=== PATIENT | female | born 1970 | race Hispanic/Latino ===

== ENCOUNTER 2017-10-25 11:46 | Emergency (ER) | payer BC ==
[2017-10-25 12:37] LABS: BASOPHILS % (AUTO) 0.9 % (0.0-5.0); EOSINOPHILS % (AUTO) 0.2 % (0.0-8.0); HEMATOCRIT 38.9 % (36-48); LYMPHOCYTES % (AUTO) 18.1 % (21.0-51.0); MEAN CORPUSCULAR HEMOGLOBIN 28.6 pg (27.0-33.0); MEAN CORPUSCULAR HGB CONC 33.6 g/dL (32.0-36.0); MEAN CORPUSCULAR VOLUME 85.2 fL (79-99); MONOCYTES % (AUTO) 5.3 % (3.0-13.0); NEUTROPHILS % (AUTO) 75.5 % (40.0-77.0); PLATELET COUNT (AUTO) 190 K/uL (130-400); RED BLOOD CELL COUNT(AUTO) 4.56 MIL/uL (4.00-5.50); RED CELL DISTRIBUTION WIDTH 13.4 % (11.0-15.5); WHITE BLOOD COUNT (AUTO) 6.5 K/uL (4.8-10.8)
[2017-10-25 12:47] LABS: CARBON DIOXIDE 25 mmol/L (21-32); CHLORIDE 102 mmol/L (101-111); CREATININE 0.7 mg/dL (0.5-1.5); GLOMERULAR FILTR. RATE CALC 96 mL/min (>60); GLUCOSE,RANDOM 208 mg/dL (70-105); POTASSIUM 3.8 mmol/L (3.5-5.1); SODIUM SERUM 136 mmol/L (136-145); UREA NITROGEN, BLOOD 21 mg/dL (7-18)
[2017-10-25 13:01] LABS: ALANINE AMINOTRANSFERASE 31 U/L (12-78); ALBUMIN 3.7 g/dL (3.5-5.0); ASPARTATE AMINOTRANSFERASE 16 U/L (10-37); BILIRUBIN,TOTAL 0.3 mg/dL (0.2-1.0); CREATINE KINASE MB < 0.5 ng/mL (0.5-3.6); CREATINE KINASE, TOTAL 67 U/L (21-232); TOTAL PROTEIN, SERUM 7.3 g/dL (6.0-8.3)
[2017-10-25] MEDS ORDERED: KETOROLAC TROMETHAMINE 30MG/ML ONE (13:50)
[2017-10-25 14:30] LABS: APPEARANCE,URINE Clear (CLEAR); BILIRUBIN,URINE Negative (NEGATIVE); COLOR,URINE Yellow (YELLOW); GLUCOSE, URINE (UA) 500 mg/dL (NEGATIVE); KETONES,URINE Negative (NEGATIVE); LEUKOCYTE ESTERASE ,URINE Moderate (NEGATIVE); NITRATE,URINE Negative (NEGATIVE); OCCULT BLOOD,URINE Negative (NEGATIVE); PROTEIN,URINE Negative (NEGATIVE); UROBILINOGEN,URINE 0.2 mg/dL (0.2-1.0)
[2017-10-25 14:43] LABS: BACTERIA,URINE Moderate /HPF (None Seen); MUCUS,URINE Moderate LPF (None Seen); RBC,URINE None Seen /HPF (0-1)
== END 2017-10-25 14:38 | disposition home or self-care (01) ==
LOC: EDH 11:46
DX: S13.4XXA Sprain of ligaments of cervical spine, initial encounter (principal); S30.0XXA Contusion of lower back and pelvis, initial encounter; S70.11XA Contusion of right thigh, initial encounter; R07.9 Chest pain, unspecified; E11.9 Type 2 diabetes mellitus without complications; I10 Essential (primary) hypertension; E78.5 Hyperlipidemia, unspecified; W18.39XA Other fall on same level, initial encounter; Y93.89 Activity, other specified; Y92.89 Other specified places as the place of occurrence of the external cause; Y99.8 Other external cause status
CPT/HCPCS: 36415; 70450; 71045; 72125; 72128; 72131; 73552; 80053; 81001; 82550; 82553; 84484; 84703; 85025; 93005; 96374; 99285; J1885

== ENCOUNTER 2017-12-05 22:27 | Emergency (ER) | payer BC ==
[2017-12-05] MEDS ORDERED: ASPIRIN 325 MG TABLET ONE (22:38)
[2017-12-05] MEDS ORDERED: KETOROLAC TROMETHAMINE 30MG/ML ONE (22:38)
[2017-12-05] MEDS ORDERED: NITROGLYCERIN 1GM/1 INCH PACKET TD ONE (22:38)
[2017-12-05 22:42] LABS: EOSINOPHILS % (AUTO) 1.2 % (0.0-8.0); HEMATOCRIT 39.6 % (36-48); LYMPHOCYTES % (AUTO) 25.4 % (21.0-51.0); MEAN CORPUSCULAR HGB CONC 34.2 g/dL (32.0-36.0); MEAN CORPUSCULAR VOLUME 84.9 fL (79-99); MONOCYTES % (AUTO) 6.2 % (3.0-13.0); NEUTROPHILS % (AUTO) 66.2 % (40.0-77.0); PLATELET COUNT (AUTO) 190 K/uL (130-400); RED BLOOD CELL COUNT(AUTO) 4.66 MIL/uL (4.00-5.50); RED CELL DISTRIBUTION WIDTH 14.3 % (11.0-15.5); WHITE BLOOD COUNT (AUTO) 7.5 K/uL (4.8-10.8)
[2017-12-05 23:02] LABS: CARBON DIOXIDE 28 mmol/L (21-32); CHLORIDE 102 mmol/L (101-111); CREATININE 0.8 mg/dL (0.5-1.5); GLOMERULAR FILTR. RATE CALC 82 mL/min (>60); GLUCOSE,RANDOM 141 mg/dL (70-105); POTASSIUM 3.5 mmol/L (3.5-5.1); SODIUM SERUM 137 mmol/L (136-145); UREA NITROGEN, BLOOD 14 mg/dL (7-18)
[2017-12-05 23:03] LABS: INR 1.02 (0.85-1.15); PARTIAL THROMBOPLASTIN TIME 23.8 SEC (26.3-35.5); PROTHROMBIN TIME 10.7 SEC (9.6-11.6)
[2017-12-05 23:18] LABS: CREATINE KINASE MB < 0.5 ng/mL (0.5-3.6); CREATINE KINASE, TOTAL 37 U/L (21-232)
== END 2017-12-06 01:59 | disposition home or self-care (01) ==
LOC: EDH 22:27
DX: M94.0 Chondrocostal junction syndrome [Tietze] (principal); R07.9 Chest pain, unspecified; E11.9 Type 2 diabetes mellitus without complications; E78.5 Hyperlipidemia, unspecified; I10 Essential (primary) hypertension; Z98.51 Tubal ligation status; Z90.49 Acquired absence of other specified parts of digestive tract
CPT/HCPCS: 36415; 71045; 80048; 82550; 82553; 84484 ×2; 84703; 85025; 85378; 85610; 85730; 93005; 96374; 99285; J1885

== ENCOUNTER 2018-02-28 18:42 | Emergency (ER) | payer BC ==
[2018-02-28 19:27] LABS: BASOPHILS % (AUTO) 0.8 % (0.0-5.0); EOSINOPHILS % (AUTO) 0.7 % (0.0-8.0); HEMATOCRIT 41.7 % (36-48); LYMPHOCYTES % (AUTO) 18.6 % (21.0-51.0); MEAN CORPUSCULAR HEMOGLOBIN 29.1 pg (27.0-33.0); MEAN CORPUSCULAR HGB CONC 33.9 g/dL (32.0-36.0); MEAN CORPUSCULAR VOLUME 85.8 fL (79-99); MONOCYTES % (AUTO) 6.4 % (3.0-13.0); NEUTROPHILS % (AUTO) 73.5 % (40.0-77.0); PLATELET COUNT (AUTO) 223 K/uL (130-400); RED BLOOD CELL COUNT(AUTO) 4.86 MIL/uL (4.00-5.50); RED CELL DISTRIBUTION WIDTH 13.2 % (11.0-15.5); WHITE BLOOD COUNT (AUTO) 8.2 K/uL (4.8-10.8)
[2018-02-28 19:29] LABS: APPEARANCE,URINE Clear (CLEAR); BILIRUBIN,URINE Negative (NEGATIVE); COLOR,URINE Yellow (YELLOW); GLUCOSE, URINE (UA) >=1000 mg/dL (NEGATIVE); KETONES,URINE Trace mg/dL (NEGATIVE); LEUKOCYTE ESTERASE ,URINE Small (NEGATIVE); NITRATE,URINE Negative (NEGATIVE); OCCULT BLOOD,URINE Negative (NEGATIVE); PH,URINE 6.5 (5.0-8.0); PROTEIN,URINE Trace (NEGATIVE)
[2018-02-28] MEDS ORDERED: HYDROXYZINE HCL 25 MG TABLET ONE (19:34)
[2018-02-28] MEDS ORDERED: ASPIRIN 325 MG TABLET ONE (19:34)
[2018-02-28 19:39] LABS: INR 1.05 (0.85-1.15); PARTIAL THROMBOPLASTIN TIME 25.6 SEC (26.3-35.5)
[2018-02-28 19:43] LABS: CREATININE 0.9 mg/dL (0.5-1.5); POTASSIUM 3.8 mmol/L (3.5-5.1)
[2018-02-28 19:46] LABS: RBC,URINE 0-1 /HPF (0-1)
[2018-02-28 19:47] LABS: BACTERIA,URINE Few /HPF (None Seen); SQUAMOUS EPITHELIAL CELL,UR Few /HPF (0-2)
[2018-02-28 19:56] LABS: ALBUMIN 3.9 g/dL (3.5-5.0); BILIRUBIN,TOTAL 0.2 mg/dL (0.2-1.0); CREATINE KINASE MB 0.6 ng/mL (0.5-3.6); TOTAL PROTEIN, SERUM 7.6 g/dL (6.0-8.3)
== END 2018-02-28 21:52 | disposition home or self-care (01) ==
LOC: EDH 18:42
DX: F41.1 Generalized anxiety disorder (principal); R07.89 Other chest pain; E11.9 Type 2 diabetes mellitus without complications; E78.5 Hyperlipidemia, unspecified; I10 Essential (primary) hypertension; Z98.51 Tubal ligation status
CPT/HCPCS: 36415; 71045; 80053; 81001; 82550; 82553; 82948; 84484; 85025; 85610; 85730; 93005

== ENCOUNTER 2018-08-25 22:53 | Inpatient (IN) | payer BC ==
[~2018-08-25] VITALS: Ht 160 cm; Wt 84.1 kg
[2018-08-25] MEDS ORDERED: ONDANSETRON HCL 4 MG/2 ML VIAL ONE (23:14)
[2018-08-25] MEDS ORDERED: ASPIRIN 325 MG TABLET ONE ×2 (23:15→23:17)
[2018-08-25] MEDS ORDERED: LORAZEPAM 2 MG/ML 1 ML VIAL ONE (23:15)
[2018-08-25] MEDS ORDERED: MORPHINE SULFATE 4 MG/1ML SYG ONE (23:16)
[2018-08-25 23:44] LABS: BASOPHILS % (AUTO) 0.8 % (0.0-5.0); EOSINOPHILS % (AUTO) 1.5 % (0.0-8.0); LYMPHOCYTES % (AUTO) 15.2 % (21.0-51.0); MEAN CORPUSCULAR HGB CONC 33.5 g/dL (32.0-36.0); MEAN CORPUSCULAR VOLUME 83.6 fL (79-99); MONOCYTES % (AUTO) 5.3 % (3.0-13.0); NEUTROPHILS % (AUTO) 77.2 % (40.0-77.0); PLATELET COUNT (AUTO) 171 K/uL (130-400); RED BLOOD CELL COUNT(AUTO) 4.79 MIL/uL (4.00-5.50); RED CELL DISTRIBUTION WIDTH 14.5 % (11.0-15.5); WHITE BLOOD COUNT (AUTO) 8.8 K/uL (4.8-10.8)
[2018-08-25 23:49] LABS: CREATININE 0.9 mg/dL (0.5-1.5); POTASSIUM 3.4 mmol/L (3.5-5.1)
[2018-08-25 23:51] LABS: PARTIAL THROMBOPLASTIN TIME 24.3 SEC (26.3-35.5); PROTHROMBIN TIME 10.5 SEC (9.6-11.6)
[2018-08-25 23:57] LABS: ALBUMIN 3.3 g/dL (3.5-5.0); BILIRUBIN,TOTAL 0.3 mg/dL (0.2-1.0); TOTAL PROTEIN, SERUM 7.3 g/dL (6.0-8.3)
[2018-08-26] MEDS ORDERED: MORPHINE SULFATE 4 MG/1ML SYG ONE (00:08)
[2018-08-26 00:25] VITALS: BP 112/68
[2018-08-26] MEDS ORDERED: LIDOCAINE HCL-MPF 1% 2ML VIAL IVP PRN (01:15)
[2018-08-26] MEDS ORDERED: POTASSIUM CHLORIDE 20MEQ/100ML 100 ML IV PRN (01:15)
[2018-08-26] MEDS ORDERED: POTASSIUM CHLORIDE 10% ELIXIR 20 MEQ/15 ML UDCUP PO PRN (01:15)
[2018-08-26] MEDS ORDERED: SODIUM CHLORIDE 0.9% 1000ML 1,000 ML IV ONE (01:30)
[2018-08-26] MEDS ORDERED: INSULIN HUMULIN R 100 UNIT/ML 3ML ONE (01:32)
[2018-08-26 01:56] LABS: HCG,QUAL RESULT NEGATIVE (NEGATIVE)
[2018-08-26 02:01] LABS: AMPHET/METH SCREEN,URINE NEGATIVE (NEGATIVE); BARBITURATE SCREEN, URINE NEGATIVE (NEGATIVE); BENZODIAZEPINES SCREEN,URINE NEGATIVE (NEGATIVE); CANNABINOID SCREEN,URINE NEGATIVE (NEGATIVE); COCAINE SCREEN,URINE NEGATIVE (NEGATIVE); OPIATE SCREEN,URINE POSITIVE (NEGATIVE); PHENCYCLIDINE SCREEN,URINE NEGATIVE (NEGATIVE)
[2018-08-26 02:15] VITALS: BP 102/69
[2018-08-26] MEDS: MAGNESIUM 2GM PREMIX 50ML 50 ML IV PRN (02:35)
[2018-08-26] MEDS: POTASSIUM CHLORIDE 20 MEQ ERTAB PO PRN ×2 (02:36→05:47)
[2018-08-26] MEDS ORDERED: ONDANSETRON HCL 4 MG/2 ML VIAL IV PRN (02:45)
[2018-08-26] MEDS ORDERED: DEXTROSE 50%-WATER 50 ML DISP.SYRIN IV PRN (02:45)
[2018-08-26] MEDS ORDERED: GLUCAGON 1MG KIT 1 MG ML IM PRN (02:45)
[2018-08-26] MEDS ORDERED: MORPHINE SULFATE 2 MG/ML 1ML SYG IV PRN (02:45)
[2018-08-26] MEDS ORDERED: NITROGLYCERIN 0.4 MG SL TAB SL PRN (02:45)
[2018-08-26] MEDS ORDERED: GABA-531 PO (04:12)
[2018-08-26] MEDS ORDERED: ATOR40TA69 PO (04:12)
[2018-08-26] MEDS: SODIUM CHLORIDE 0.9% 1000ML 1,000 ML IV SCH ×3 (04:42→20:39)
[2018-08-26] MEDS ORDERED: LORAZEPAM 0.5 MG TABLET PO PRN (05:00)
[2018-08-26] MEDS: INSULIN HUMULIN R 100 UNIT/ML 3ML SQ SCH ×4 (06:13→20:38)
[2018-08-26 06:23] LABS: BASOPHILS % (AUTO) 0.8 % (0.0-5.0); EOSINOPHILS % (AUTO) 0.1 % (0.0-8.0); HEMATOCRIT 36.6 % (36-48); LYMPHOCYTES % (AUTO) 10.7 % (21.0-51.0); MEAN CORPUSCULAR HEMOGLOBIN 28.2 pg (27.0-33.0); MEAN CORPUSCULAR HGB CONC 34.1 g/dL (32.0-36.0); MEAN CORPUSCULAR VOLUME 82.7 fL (79-99); MONOCYTES % (AUTO) 4.5 % (3.0-13.0); NEUTROPHILS % (AUTO) 83.9 % (40.0-77.0); PLATELET COUNT (AUTO) 189 K/uL (130-400); RED BLOOD CELL COUNT(AUTO) 4.43 MIL/uL (4.00-5.50); RED CELL DISTRIBUTION WIDTH 14.4 % (11.0-15.5); WHITE BLOOD COUNT (AUTO) 9.6 K/uL (4.8-10.8)
[2018-08-26 06:43] LABS: TROPONIN I 2.06 ng/mL (0.00-0.06)
[2018-08-26 06:58] LABS: ALBUMIN 2.8 g/dL (3.5-5.0); BILIRUBIN,TOTAL 0.4 mg/dL (0.2-1.0); CREATININE 0.9 mg/dL (0.5-1.5); MAGNESIUM 2.4 mg/dL (1.80-2.40); POTASSIUM 4.7 mmol/L (3.5-5.1); THYROID STIMULATING HORMONE 1.54 uIU/mL (0.36-3.74); TOTAL PROTEIN, SERUM 6.3 g/dL (6.0-8.3)
[2018-08-26 08:00] VITALS: BP 114/79
[2018-08-26] MEDS ORDERED: ENOXAPARIN SODIUM 40 MG/0.4 ML SYRINGE SQ SCH (09:00)
[2018-08-26] MEDS: PANTOPRAZOLE SODIUM 40 MG TABLET.DR PO SCH (09:44)
[2018-08-26] MEDS: ASPIRIN 325 MG TABLET PO SCH (09:44)
[2018-08-26] MEDS: METOPROLOL TARTRATE 25 MG TAB PO SCH ×2 (09:44→20:38)
[2018-08-26] MEDS: MORPHINE SULFATE 4 MG/1ML SYG IV PRN (09:45)
[2018-08-26 12:00] VITALS: BP 98/65
[2018-08-26 12:57] LABS: TROPONIN I 0.84 ng/mL (0.00-0.06)
[2018-08-26 16:00] VITALS: BP 101/66
[2018-08-26] MEDS: ACETAMINOPHEN 325 MG TAB PO PRN (17:14)
[2018-08-26 19:12] VITALS: BP 106/70
[2018-08-26] MEDS ORDERED: GABAPENTIN 300 MG CAPSULE ONE (20:30)
[2018-08-26] MEDS: ATORVASTATIN CALCIUM 40 MG TABLET PO SCH (20:37)
[2018-08-27] VITALS (18 sets, daily range): BP systolic 94–117; BP diastolic 57–74
[2018-08-27] MEDS: SODIUM CHLORIDE 0.9% 1000ML 1,000 ML IV SCH ×4 (06:27→23:30)
[2018-08-27] MEDS: INSULIN HUMULIN R 100 UNIT/ML 3ML SQ SCH ×4 (06:28→21:28)
[2018-08-27] MEDS: ACETAMINOPHEN 325 MG TAB PO PRN ×3 (07:53→23:32)
[2018-08-27] MEDS: ASPIRIN 325 MG TABLET PO SCH (07:54)
[2018-08-27] MEDS: PANTOPRAZOLE SODIUM 40 MG TABLET.DR PO SCH (07:54)
[2018-08-27] MEDS: METOPROLOL TARTRATE 25 MG TAB PO SCH ×2 (07:54→21:20)
[2018-08-27] MEDS ORDERED: LIDOCAINE HCL 2% 20ML ONE (09:19)
[2018-08-27] MEDS ORDERED: NITROGLYCERIN 5 MG/ML 10 ML VIAL IV ONE (09:21)
[2018-08-27] MEDS ORDERED: HEPARIN SODIUM 1000UNIT/ML 10ML VIAL ONE (09:21)
[2018-08-27] MEDS ORDERED: IOHEXOL-350 50ML VIAL IV ONE (09:21)
[2018-08-27] MEDS ORDERED: IOHEXOL 350 MG/ML 100ML INFUS..BTL IV ONE (09:21)
[2018-08-27] MEDS ORDERED: MIDAZOLAM HCL 1 MG/ML 2ML VIAL ONE (09:41)
[2018-08-27] MEDS ORDERED: FENTANYL CITRATE PF 50 MCG/1 ML 2ML VIAL ONE (09:41)
[2018-08-27] MEDS: FUROSEMIDE 10 MG/ML 4ML VIAL IV SCH ×2 (12:24→18:12)
[2018-08-27] MEDS: GABAPENTIN 300 MG CAPSULE PO SCH (12:24)
[2018-08-27] MEDS: MORPHINE SULFATE 4 MG/1ML SYG IV PRN (18:15)
[2018-08-27] MEDS: ATORVASTATIN CALCIUM 40 MG TABLET PO SCH (21:20)
[2018-08-27] MEDS: ENALAPRIL MALEATE 5 MG TAB PO SCH (23:29)
[2018-08-28] MEDS: FUROSEMIDE 10 MG/ML 4ML VIAL IV SCH (02:56)
[2018-08-28 03:41] VITALS: BP 103/61
[2018-08-28 05:46] LABS: MEAN CORPUSCULAR HEMOGLOBIN 28.6 pg (27.0-33.0); MEAN CORPUSCULAR HGB CONC 34.3 g/dL (32.0-36.0); MEAN CORPUSCULAR VOLUME 83.3 fL (79-99); PLATELET COUNT (AUTO) 158 K/uL (130-400); RED BLOOD CELL COUNT(AUTO) 4.43 MIL/uL (4.00-5.50); RED CELL DISTRIBUTION WIDTH 14.7 % (11.0-15.5); WHITE BLOOD COUNT (AUTO) 5.8 K/uL (4.8-10.8)
[2018-08-28 05:51] LABS: B-TYPE NATRIURETIC PEPTIDE 434 pg/mL (0-100)
[2018-08-28 05:53] LABS: POTASSIUM 3.3 mmol/L (3.5-5.1)
[2018-08-28 05:54] LABS: CHOLESTEROL 138 mg/dL (<200); CREATININE 0.7 mg/dL (0.5-1.5); HDL CHOLESTEROL 52 mg/dL (35-85); LDL DIRECT 66 mg/dL (0-99); TRIGLYCERIDES 148 mg/dL (30-200)
[2018-08-28 06:07] LABS: BAND NEUTROPHILS % (MANUAL) 3 % (0-2); EOSINOPHILS % (MANUAL) 2 % (1-6); LYMPHOCYTES % (MANUAL) 22 % (22-44); MONOCYTES % (MANUAL) 8 % (2-9); REACTIVE LYMPHOCYTES 2 % (0-0); SEGMENTED NEUTROPHILS % 63 % (40-70)
[2018-08-28 06:10] LABS: MAN.DIFF COMMENT-IMPRESSION MANUAL DIFFERENTIAL
[2018-08-28 06:11] LABS: PLATELET MORPHOLOGY COMMENT ADEQUATE
[2018-08-28] MEDS: INSULIN HUMULIN R 100 UNIT/ML 3ML SQ SCH ×4 (06:26→20:29)
[2018-08-28 08:00] VITALS: BP 110/69
[2018-08-28] MEDS: ASPIRIN 325 MG TABLET PO SCH (08:55)
[2018-08-28] MEDS: ENALAPRIL MALEATE 5 MG TAB PO SCH ×2 (08:56→20:23)
[2018-08-28] MEDS: ACETAMINOPHEN 325 MG TAB PO PRN ×2 (08:57→22:57)
[2018-08-28] MEDS: GABAPENTIN 300 MG CAPSULE PO SCH (08:57)
[2018-08-28] MEDS: METOPROLOL TARTRATE 25 MG TAB PO SCH ×2 (08:57→20:23)
[2018-08-28] MEDS: PANTOPRAZOLE SODIUM 40 MG TABLET.DR PO SCH (08:58)
[2018-08-28] MEDS: SODIUM CHLORIDE 0.9% 1000ML 1,000 ML IV SCH ×2 (10:40→18:40)
[2018-08-28 12:00] VITALS: BP 97/54
[2018-08-28] MEDS: POTASSIUM CHLORIDE 20 MEQ ERTAB PO PRN ×2 (12:26→20:22)
[2018-08-28 16:00] VITALS: BP 116/69
[2018-08-28] MEDS: MAGNESIUM 2GM PREMIX 50ML 50 ML IV PRN (17:24)
[2018-08-28 19:00] VITALS: BP 130/78
[2018-08-28] MEDS ORDERED: GUAIFENESIN SUGAR-FREE 100 MG/5 ML UDCUP PO PRN (19:30)
[2018-08-28] MEDS: ATORVASTATIN CALCIUM 40 MG TABLET PO SCH (20:23)
[2018-08-28 23:00] VITALS: BP 142/88
[2018-08-29] VITALS: BP 108/62
[2018-08-29] MEDS: SODIUM CHLORIDE 0.9% 1000ML 1,000 ML IV SCH (02:38)
[2018-08-29 04:26] VITALS: BP 90/65
[2018-08-29 04:51] LABS: MAGNESIUM 1.8 mg/dL (1.80-2.40)
[2018-08-29] MEDS: INSULIN HUMULIN R 100 UNIT/ML 3ML SQ SCH ×3 (05:54→17:20)
[2018-08-29 08:00] VITALS: BP 125/78
[2018-08-29] MEDS: GABAPENTIN 300 MG CAPSULE PO SCH (09:08)
[2018-08-29] MEDS: METOPROLOL TARTRATE 25 MG TAB PO SCH (09:08)
[2018-08-29] MEDS: PANTOPRAZOLE SODIUM 40 MG TABLET.DR PO SCH (09:08)
[2018-08-29] MEDS: ENALAPRIL MALEATE 5 MG TAB PO SCH (09:08)
[2018-08-29] MEDS: ASPIRIN 325 MG TABLET PO SCH (09:08)
[2018-08-29] MEDS: ACETAMINOPHEN 325 MG TAB PO PRN ×2 (09:10→18:39)
[2018-08-29 12:00] VITALS: BP 114/70
[2018-08-29] MEDS ORDERED: ENAL5TAB PO (13:35)
[2018-08-29] MEDS ORDERED: FURO20TA6 PO (13:35)
[2018-08-29] MEDS ORDERED: METO50TA18 PO (13:35)
[2018-08-29 16:00] VITALS: BP 103/59
[2018-08-29] MEDS ORDERED: FUROSEMIDE 20 MG TABLET PO SCH (17:00)
[2018-08-29] MEDS ORDERED: METOPROLOL TARTRATE 25 MG TAB PO SCH (21:00)
== END 2018-08-29 19:43 | DRG 280 ==
LOC: EDH 22:53 → EEVIPCON 08-26 01:05 → EDHIP 08-26 01:05 → 3AH 08-26 01:22
PROVIDERS: ADMIT Internal Medicine; ATTEND Internal Medicine
PROC: B2111ZZ Fluoroscopy of Multiple Coronary Arteries using Low Osmolar Contrast (ICD-10-PCS; principal; 2018-08-27)
PROC: 4A023N7 Measurement of Cardiac Sampling and Pressure, Left Heart, Percutaneous Approach (ICD-10-PCS; 2018-08-27)
PROC: B2151ZZ Fluoroscopy of Left Heart using Low Osmolar Contrast (ICD-10-PCS; 2018-08-27)
DX: I21.4 Non-ST elevation (NSTEMI) myocardial infarction (principal); I50.21 Acute systolic (congestive) heart failure; I42.9 Cardiomyopathy, unspecified; I25.110 Atherosclerotic heart disease of native coronary artery with unstable angina pectoris; I11.0 Hypertensive heart disease with heart failure; E66.9 Obesity, unspecified; E11.65 Type 2 diabetes mellitus with hyperglycemia; E78.2 Mixed hyperlipidemia; F41.9 Anxiety disorder, unspecified; Z90.49 Acquired absence of other specified parts of digestive tract; Z68.32 Body mass index [BMI] 32.0-32.9, adult; Z98.51 Tubal ligation status; Z79.84 Long term (current) use of oral hypoglycemic drugs
CPT/HCPCS: 36415; 71045; 80048; 80053; 80061; 80305; 81025; 82550; 82948; 83036; 83735; 83874; 83880; 84132; 84443; 84484; 85025; 85378; 85610; 85730; 93005; 93306; 93458; 99156; 99157; 99291; C1760; C1894; J1644; J1650; J1815; J1940; J2060; J2250; J2270; J2405; J3010; J3475; J3490; J7030; Q2038; Q9967

== ENCOUNTER 2018-10-20 21:05 | Emergency (ER) | payer BC ==
[~2018-10-20 21:05] MED LIST: ATOR40TA69 PO; ENAL5TAB PO; FURO20TA6 PO; GABA-531 PO; METO50TA18 PO
[2018-10-20] MEDS ORDERED: ASPIRIN 325 MG TABLET ONE (21:13)
[2018-10-20 21:26] LABS: BASOPHILS % (AUTO) 0.6 % (0.0-5.0); EOSINOPHILS % (AUTO) 1.2 % (0.0-8.0); HEMATOCRIT 39.2 % (36-48); LYMPHOCYTES % (AUTO) 27.4 % (21.0-51.0); MEAN CORPUSCULAR HEMOGLOBIN 28.2 pg (27.0-33.0); MEAN CORPUSCULAR HGB CONC 33.3 g/dL (32.0-36.0); MEAN CORPUSCULAR VOLUME 84.6 fL (79-99); MONOCYTES % (AUTO) 6.1 % (3.0-13.0); NEUTROPHILS % (AUTO) 64.7 % (40.0-77.0); NUCLEATED RED BLOOD CELLS 0.1 % (0.0-0.19); PLATELET COUNT (AUTO) 195 K/uL (130-400); RED BLOOD CELL COUNT(AUTO) 4.63 MIL/uL (4.00-5.50); RED CELL DISTRIBUTION WIDTH 15.6 % (11.0-15.5); WHITE BLOOD COUNT (AUTO) 6.2 K/uL (4.8-10.8)
[2018-10-20 21:39] LABS: CREATININE 0.7 mg/dL (0.5-1.5); POTASSIUM 3.4 mmol/L (3.5-5.1)
[2018-10-20 21:49] LABS: ALBUMIN 3.3 g/dL (3.5-5.0); BILIRUBIN,TOTAL 0.2 mg/dL (0.2-1.0); TOTAL PROTEIN, SERUM 7.2 g/dL (6.0-8.3)
[2018-10-20 21:57] LABS: INR 1.01 (0.85-1.15); PARTIAL THROMBOPLASTIN TIME 24.5 SEC (26.3-35.5); PROTHROMBIN TIME 10.6 SEC (9.6-11.6)
[2018-10-20] MEDS ORDERED: DIPHENHYDRAMINE HCL 25 MG CAPSULE ONE (23:01)
== END 2018-10-21 00:17 | disposition home or self-care (01) ==
LOC: EDH 21:05
DX: R07.2 Precordial pain (principal); I10 Essential (primary) hypertension; E78.5 Hyperlipidemia, unspecified; E11.9 Type 2 diabetes mellitus without complications; F41.9 Anxiety disorder, unspecified; Z90.49 Acquired absence of other specified parts of digestive tract; Z98.51 Tubal ligation status
CPT/HCPCS: 36415; 71045; 80053; 82550; 83874; 84484 ×2; 85025; 85610; 85730; 93005 ×2; 99285; Q0163

== ENCOUNTER 2019-01-05 15:21 | Emergency (ER) | payer BC, OTHER ==
[2019-01-05] MEDS ORDERED: CLINDAMYCIN HCL 150 MG CAP ONE (15:49)
== END 2019-01-05 16:32 | disposition home or self-care (01) ==
LOC: EDH 15:21
DX: L03.011 Cellulitis of right finger (principal); I10 Essential (primary) hypertension; E78.5 Hyperlipidemia, unspecified; E11.9 Type 2 diabetes mellitus without complications; F41.9 Anxiety disorder, unspecified; Z98.51 Tubal ligation status

== ENCOUNTER 2019-04-26 19:48 | Inpatient (IN) | payer SELFPAY ==
[~2019-04-26] VITALS: Ht 160 cm; Wt 83.4 kg
[2019-04-26] MEDS ORDERED: ASPIRIN 325 MG TABLET ONE (19:57)
[2019-04-26 20:10] LABS: BASOPHILS % (AUTO) 1.4 % (0.0-5.0); EOSINOPHILS % (AUTO) 2.1 % (0.0-8.0); HEMATOCRIT 40.8 % (36-48); MEAN CORPUSCULAR HEMOGLOBIN 27.6 pg (27.0-33.0); MEAN CORPUSCULAR HGB CONC 32.5 g/dL (32.0-36.0); MONOCYTES % (AUTO) 9.1 % (3.0-13.0); NEUTROPHILS % (AUTO) 51.4 % (40.0-77.0); PLATELET COUNT (AUTO) 157 K/uL (130-400); RED CELL DISTRIBUTION WIDTH 14.7 % (11.0-15.5); WHITE BLOOD COUNT (AUTO) 4.8 K/uL (4.8-10.8)
[2019-04-26 20:42] LABS: ALBUMIN 3.4 g/dL (3.5-5.0); BILIRUBIN,TOTAL 0.4 mg/dL (0.2-1.0); CREATININE 1.3 mg/dL (0.5-1.5); POTASSIUM 4.3 mmol/L (3.5-5.1); TOTAL PROTEIN, SERUM 7.3 g/dL (6.0-8.3)
[2019-04-26] MEDS ORDERED: MORPHINE SULFATE 4 MG/1ML SYG ONE (21:21)
[2019-04-26] MEDS ORDERED: ONDANSETRON HCL 4 MG/2 ML VIAL ONE (21:21)
[2019-04-26] MEDS ORDERED: INSULIN HUMULIN R 100 UNIT/ML 3ML ONE (21:22)
[2019-04-26] MEDS ORDERED: ONDANSETRON HCL 4 MG/2 ML VIAL IV PRN (22:00)
[2019-04-26] MEDS ORDERED: MORPHINE SULFATE 2 MG/ML 1ML SYG IV PRN (22:00)
[2019-04-26] MEDS ORDERED: NITROGLYCERIN 0.4 MG SL TAB SL PRN (22:15)
[2019-04-26 22:20] LABS: HEMOGLOBIN A1C 13.6 % (4.0-6.0)
[2019-04-26 22:21] LABS: CHOLESTEROL 202 mg/dL (<200); HDL CHOLESTEROL 58 mg/dL (35-85); LDL DIRECT 94 mg/dL (0-99); TRIGLYCERIDES 550 mg/dL (30-200)
[2019-04-26 22:36] LABS: APPEARANCE,URINE Clear (CLEAR); BILIRUBIN,URINE Negative (NEGATIVE); COLOR,URINE Yellow (YELLOW); GLUCOSE, URINE (UA) >=1000 mg/dL (NEGATIVE); KETONES,URINE Negative (NEGATIVE); LEUKOCYTE ESTERASE ,URINE Negative (NEGATIVE); NITRATE,URINE Negative (NEGATIVE); OCCULT BLOOD,URINE Negative (NEGATIVE); PROTEIN,URINE Negative (NEGATIVE); UROBILINOGEN,URINE 0.2 mg/dL (0.2-1.0)
[2019-04-26 23:03] LABS: RBC,URINE 0-1 /HPF (0-1)
[2019-04-26 23:04] LABS: BACTERIA,URINE Rare /HPF (None Seen); WBC,URINE 0-1 /HPF (0-1); YEAST,URINE BUDDING Few /HPF (None Seen)
[2019-04-27 00:40] LABS: CREATINE KINASE, TOTAL 52 U/L (21-232); MYOGLOBIN 44 ng/mL (10-92); TROPONIN I < 0.04 ng/mL (0.00-0.06)
[2019-04-27 00:45] VITALS: BP 104/60
[2019-04-27] MEDS ORDERED: LOSA50TA64 PO (01:18)
[2019-04-27] MEDS ORDERED: NITR0.4T SL (01:18)
[2019-04-27] MEDS ORDERED: SPIR25TA6 PO (01:18)
[2019-04-27] MEDS ORDERED: AEC81 PO (01:18)
[2019-04-27] MEDS ORDERED: NAPR-1023 PO (01:18)
[2019-04-27] MEDS ORDERED: FURO20TA4 PO (01:18)
[2019-04-27] MEDS ORDERED: ROPI1TAB11 PO (01:18)
[2019-04-27] MEDS ORDERED: FOLI1TAB15 PO (01:18)
[2019-04-27 04:44] VITALS: BP 108/63
[2019-04-27] MEDS: INSULIN HUMULIN R 100 UNIT/ML 3ML SQ SCH ×4 (06:39→21:08)
[2019-04-27 06:44] LABS: CREATINE KINASE, TOTAL 47 U/L (21-232); MYOGLOBIN 34 ng/mL (10-92); TROPONIN I < 0.04 ng/mL (0.00-0.06)
[2019-04-27 07:23] VITALS: BP 107/65
--- NOTE | 2019-04-27 07:30 | NUR ---
ASSESSMENT PT IS RESTING IN BED, [id number] DENIES CP DENIES SOB DENIES NV, BREATHING PATTERN IS EVEN AND UNLABORED, NO COMPLAINTS. CALL LIGHT WITHIN REACH.
[2019-04-27] MEDS: FAMOTIDINE 20MG TAB 20 MG TAB PO SCH (07:43)
[2019-04-27] MEDS: ASPIRIN 325 MG TABLET PO SCH (07:43)
[2019-04-27] MEDS: METOPROLOL TARTRATE 25 MG TAB PO SCH ×2 (07:43→20:21)
[2019-04-27] MEDS: ENOXAPARIN SODIUM 40 MG/0.4 ML SYRINGE SQ SCH (07:44)
[2019-04-27] MEDS ORDERED: FAMOTIDINE/PF 20 MG/2 ML VIAL IV SCH (09:00)
[2019-04-27 11:39] VITALS: BP 111/72
[2019-04-27 12:38] LABS: CREATINE KINASE, TOTAL 41 U/L (21-232); MYOGLOBIN 39 ng/mL (10-92); TROPONIN I < 0.04 ng/mL (0.00-0.06)
--- NOTE | 2019-04-27 14:08 | NUR ---
DC PLAN VISITED WITH PATIENT. PATIENT LIVES WITH SPOUSE. INDEPENDENT ABLE TO PERFORM ADL'S. PATIENT HAS NO SERVICES OR DME'S. GOES TO [facility] FOR MD. SPENT 20 MIN WITH PATIENT REGARDING DIABETES. PATIENT SPOUSE SAYS HE HAS A SPARE GLUCOSE BLUING OVEN TENDER CAN USE. PATIENT DID NOT APPEAR TO BE INTERESTED IN INFORMATION. EVEN AFTER TALK PATIENT ATE FOOD BROUGHT BY . RICE MASHED POTATO CORN AND BREAD. Addendum: 04/27/19 at 1413 by OSWALD MARTIN RN CM Amended: Links added.
[2019-04-27 15:34] VITALS: BP 98/61
[2019-04-27] MEDS ORDERED: INSULIN HUMULIN 70/30 100 UNIT/ML 3ML SQ SCH (16:30)
[2019-04-27 20:00] VITALS: BP 121/65
[2019-04-27] MEDS ORDERED: ATORVASTATIN CALCIUM 20 MG TABLET PO SCH (21:00)
[2019-04-27] MEDS: ACETAMINOPHEN 325 MG TAB PO PRN (21:27)
[2019-04-28] VITALS: BP 106/61
[2019-04-28 03:42] LABS: BASOPHILS % (AUTO) 1.2 % (0.0-5.0); EOSINOPHILS % (AUTO) 3.1 % (0.0-8.0); HEMATOCRIT 35.6 % (36-48); LYMPHOCYTES % (AUTO) 41.6 % (21.0-51.0); MEAN CORPUSCULAR HGB CONC 33.4 g/dL (32.0-36.0); MEAN CORPUSCULAR VOLUME 83.7 fL (79-99); MONOCYTES % (AUTO) 8.8 % (3.0-13.0); NEUTROPHILS % (AUTO) 45.3 % (40.0-77.0); PLATELET COUNT (AUTO) 142 K/uL (130-400); RED BLOOD CELL COUNT(AUTO) 4.25 MIL/uL (4.00-5.50); RED CELL DISTRIBUTION WIDTH 14.8 % (11.0-15.5); WHITE BLOOD COUNT (AUTO) 5.6 K/uL (4.8-10.8)
[2019-04-28 03:57] LABS: CREATININE 0.7 mg/dL (0.5-1.5); POTASSIUM 3.6 mmol/L (3.5-5.1)
[2019-04-28 04:57] VITALS: BP 111/69
[2019-04-28] MEDS: INSULIN HUMULIN R 100 UNIT/ML 3ML SQ SCH ×2 (06:33→11:08)
[2019-04-28 07:00] VITALS: BP 110/65
[2019-04-28] MEDS ORDERED: INSULIN HUMULIN 70/30 100 UNIT/ML 3ML SQ SCH (07:30)
[2019-04-28] MEDS: METOPROLOL TARTRATE 25 MG TAB PO SCH (08:31)
[2019-04-28] MEDS: FAMOTIDINE 20MG TAB 20 MG TAB PO SCH (08:31)
[2019-04-28] MEDS: ENOXAPARIN SODIUM 40 MG/0.4 ML SYRINGE SQ SCH (08:32)
[2019-04-28] MEDS: ASPIRIN 325 MG TABLET PO SCH (08:32)
[2019-04-28] MEDS: ACETAMINOPHEN 325 MG TAB PO PRN (09:50)
[2019-04-28 11:00] VITALS: BP 113/65
--- NOTE | 2019-04-28 13:10 | NUR ---
DISCHARGE VERBAL & WRITTEN DISCHARGE INSTRUCTIONS REVIEWED & GIVEN TO PT. QUESTIONS ENCOURAGED & CLARIFIED. PROPER MGT & PREVENTION OF HYPERGLYCEMIA REVIEWED. PT TO CONTINUE HOME MEDICATIONS & F/U W/PCP IN 1-2 WEEKS. TELE VIOLETA REMOVED EARLIER. IV DISCONTINUED. PT & SPOUSE TO GATHER PERSONAL BELONGINGS. WILL NOTIFY STAFF WHEN READY TO BE TAKEN TO PRIVATE VEHICLE.
--- NOTE | 2019-04-28 13:15 | NUR ---
DISCHARGE PT TAKEN TO PRIVATE VEHICLE VIA WC BY Kris CORNELL PCP, ACCOMPANIED BY SPOUSE. NO DISTRESS NOTED.
== END 2019-04-28 13:15 | disposition home or self-care (01) | DRG 313 ==
LOC: EDH 19:48 → EDHIP 19:49 → OBSVTOIN 19:49 → 2DH 04-27 00:39
PROVIDERS: ADMIT Internal Medicine; ATTEND Internal Medicine
DX: R07.89 Other chest pain (principal); E44.0 Moderate protein-calorie malnutrition; E11.40 Type 2 diabetes mellitus with diabetic neuropathy, unspecified; E11.65 Type 2 diabetes mellitus with hyperglycemia; E78.2 Mixed hyperlipidemia; I11.0 Hypertensive heart disease with heart failure; I50.9 Heart failure, unspecified; I25.2 Old myocardial infarction; Z91.19 Patient's noncompliance with other medical treatment and regimen; Z83.3 Family history of diabetes mellitus; Z82.49 Family history of ischemic heart disease and other diseases of the circulatory system; Z90.49 Acquired absence of other specified parts of digestive tract; Z98.51 Tubal ligation status; Z79.899 Other long term (current) drug therapy; Z68.32 Body mass index [BMI] 32.0-32.9, adult
CPT/HCPCS: 36415; 71045; 80048; 80053; 80061; 81001; 82550; 82948; 83036; 83874; 84484; 85025; 93005; 99291; G0378; J1650; J1815; J2270; J2405

== ENCOUNTER 2019-05-09 10:08 | Emergency (ER) | payer OTHER ==
[~2019-05-09 10:08] MED LIST changes: +AEC81 PO; -ENAL5TAB PO; +FOLI1TAB15 PO; +FURO20TA4 PO; -FURO20TA6 PO; -GABA-531 PO; +LOSA50TA64 PO; +NAPR-1023 PO; +NITR0.4T SL; +ROPI1TAB11 PO; +SPIR25TA6 PO
[2019-05-09] MEDS ORDERED: METOCLOPRAMIDE 10 MG/2 ML VIAL ONE (10:54)
[2019-05-09] MEDS ORDERED: SODIUM CHLORIDE 0.9% 1000ML 1,000 ML IV ONE (10:55)
[2019-05-09 11:21] LABS: BASOPHILS % (AUTO) 0.9 % (0.0-5.0); EOSINOPHILS % (AUTO) 1.2 % (0.0-8.0); HEMATOCRIT 41.9 % (36-48); LYMPHOCYTES % (AUTO) 24.3 % (21.0-51.0); MEAN CORPUSCULAR HEMOGLOBIN 28.1 pg (27.0-33.0); MEAN CORPUSCULAR HGB CONC 33.4 g/dL (32.0-36.0); MEAN CORPUSCULAR VOLUME 84.1 fL (79-99); MONOCYTES % (AUTO) 5.4 % (3.0-13.0); NEUTROPHILS % (AUTO) 68.2 % (40.0-77.0); PLATELET COUNT (AUTO) 186 K/uL (130-400); RED BLOOD CELL COUNT(AUTO) 4.99 MIL/uL (4.00-5.50); RED CELL DISTRIBUTION WIDTH 14.7 % (11.0-15.5); WHITE BLOOD COUNT (AUTO) 6.6 K/uL (4.8-10.8)
[2019-05-09 11:34] LABS: CREATININE 0.8 mg/dL (0.5-1.5); POTASSIUM 3.8 mmol/L (3.5-5.1)
[2019-05-09 11:36] LABS: ALBUMIN 3.5 g/dL (3.5-5.0); BILIRUBIN,TOTAL 0.4 mg/dL (0.2-1.0); TOTAL PROTEIN, SERUM 7.6 g/dL (6.0-8.3)
[2019-05-09 12:06] LABS: APPEARANCE,URINE Clear (CLEAR); BILIRUBIN,URINE Negative (NEGATIVE); COLOR,URINE Yellow (YELLOW); GLUCOSE, URINE (UA) >=1000 mg/dL (NEGATIVE); KETONES,URINE Negative (NEGATIVE); LEUKOCYTE ESTERASE ,URINE Negative (NEGATIVE); NITRATE,URINE Negative (NEGATIVE); OCCULT BLOOD,URINE Negative (NEGATIVE); PH,URINE 5.5 (5.0-8.0); PROTEIN,URINE Negative (NEGATIVE); UROBILINOGEN,URINE 0.2 mg/dL (0.2-1.0)
[2019-05-09 12:16] LABS: BACTERIA,URINE None Seen /HPF (None Seen); RBC,URINE 0-1 /HPF (0-1); SQUAMOUS EPITHELIAL CELL,UR 0-2 /HPF (0-2); WBC,URINE 0-1 /HPF (0-1)
[2019-05-09] MEDS ORDERED: KETOROLAC TROMETHAMINE 30MG/ML ONE (12:20)
== END 2019-05-09 12:54 | disposition home or self-care (01) ==
LOC: EDH 10:08
DX: H53.8 Other visual disturbances (principal); R51 Headache; E11.9 Type 2 diabetes mellitus without complications; F41.9 Anxiety disorder, unspecified; E78.5 Hyperlipidemia, unspecified; I10 Essential (primary) hypertension; Z90.49 Acquired absence of other specified parts of digestive tract; Z98.51 Tubal ligation status
CPT/HCPCS: 36415; 70450; 80053; 81001; 85025; 96374; 96375; 99285; J1885; J2765; J7030

== ENCOUNTER 2019-10-25 12:04 | Emergency (ER) | payer SELFPAY | END 2019-10-25 13:08 | disposition home or self-care (01) | LOC: EDH 12:04 | DX: R05 Cough (principal); F41.9 Anxiety disorder, unspecified; E11.9 Type 2 diabetes mellitus without complications; E78.5 Hyperlipidemia, unspecified; I10 Essential (primary) hypertension | CPT/HCPCS: 99281 ==

== ENCOUNTER 2021-01-26 03:36 | Emergency (ER) | payer OTHER ==
[~2021-01-26 03:36] MED LIST changes: -ROPI1TAB11 PO; +ROPI1TAB13 PO
[2021-01-26] MEDS ORDERED: INSULIN HUMULIN R 100 UNIT/ML 3ML ONE (04:40)
[2021-01-26] MEDS ORDERED: SODIUM CHLORIDE 0.9% 500ML 500 ML IV ONE ×2 (04:40→06:06)
[2021-01-26 05:01] LABS: BASOPHILS % (AUTO) 0.4 % (0.0-5.0); EOSINOPHILS % (AUTO) 0.4 % (0.0-8.0); HEMATOCRIT 41.7 % (36-48); MEAN CORPUSCULAR HEMOGLOBIN 26.7 pg (27.0-33.0); MEAN CORPUSCULAR HGB CONC 33.1 g/dL (32.0-36.0); MEAN CORPUSCULAR VOLUME 80.8 fL (79-99); NEUTROPHILS % (AUTO) 69.9 % (40.0-77.0); PLATELET COUNT (AUTO) 206 K/uL (130-400); RED BLOOD CELL COUNT(AUTO) 5.16 MIL/uL (4.00-5.50); RED CELL DISTRIBUTION WIDTH 14.6 % (11.0-15.5); WHITE BLOOD COUNT (AUTO) 7.8 K/uL (4.8-10.8)
[2021-01-26 05:26] LABS: ALBUMIN 3.5 g/dL (3.5-5.0); BILIRUBIN,TOTAL 0.5 mg/dL (0.2-1.0); TOTAL PROTEIN, SERUM 7.7 g/dL (6.0-8.3)
[2021-01-26] MEDS ORDERED: HYDROCODONE/ACETAMINOPHEN 7.5/325 MG TAB ONE (07:10)
== END 2021-01-26 07:35 | disposition home or self-care (01) ==
LOC: EDH 03:36
DX: E11.65 Type 2 diabetes mellitus with hyperglycemia (principal); I10 Essential (primary) hypertension; F41.1 Generalized anxiety disorder; E86.0 Dehydration; E11.40 Type 2 diabetes mellitus with diabetic neuropathy, unspecified; I25.2 Old myocardial infarction; E78.5 Hyperlipidemia, unspecified; Z90.49 Acquired absence of other specified parts of digestive tract
CPT/HCPCS: 36415; 71045; 80053; 82948 ×3; 84484; 85025; 85378; 93005; 96360; 96361; 96372; 99285; J1815; J7040 ×2